=== PATIENT | female | born 1965 | race Caucasian/White ===

== ENCOUNTER 2016-10-25 12:13 | Inpatient (IN) | payer OTHER ==
[~2016-10-25] VITALS: Ht 167.6 cm; Wt 89.9 kg
[~2016-10-25 12:13] MED LIST: CLOP75TA52 PO; METO25TA4 PO
[2016-10-25 12:55] LABS: HEMATOCRIT 45.2 % (34.6-47.8); HEMOGLOBIN 15.1 g/dL (11.7-16.4); WHITE BLOOD COUNT 8.5 x10^3/uL (3.4-10)
[2016-10-25] MEDS ORDERED: ASPIRIN 325 MG TABLET PO ONE (13:36)
[2016-10-25] MEDS ORDERED: ASPIRIN 325 MG TABLET ONE (14:47)
[2016-10-25] MEDS ORDERED: ACETAMINOPHEN 325 MG TABLET PO PRN (15:00)
[2016-10-25] MEDS ORDERED: HYDROcodone/APAP 5/325 TABLET PO PRN (15:00)
[2016-10-25] MEDS ORDERED: morphine SULFATE 10 MG/ML, 1ML IVPush PRN (15:00)
[2016-10-25] MEDS ORDERED: ONDANSETRON 2MG/ML, 2ML IVPush PRN (15:00)
[2016-10-25] MEDS ORDERED: ONDANSETRON ODT 4 MG PO PRN (15:00)
[2016-10-25 15:08] LABS: ASPARTATE AMINO TRANSFERASE 11 U/L (15-37); BLOOD UREA NITROGEN 11 mg/dL (7-18)
[2016-10-25] MEDS ORDERED: GADOBUTROL 10 MMOL/10 ML PFS ONE (15:16)
[2016-10-25] MEDS ORDERED: OMNIPAQUE 350 MG/ML, 100ML BOTTLE ONE (17:23)
[2016-10-25 20:51] VITALS: BP 132/89
[2016-10-25] MEDS: ENOXAPARIN 40 MG/0.4 ML SQ SCH (20:54)
[2016-10-26 03:05] VITALS: BP 109/74
[2016-10-26 04:02] LABS: HEMATOCRIT 42.2 % (34.6-47.8); HEMOGLOBIN 13.9 g/dL (11.7-16.4); WHITE BLOOD COUNT 6.3 x10^3/uL (3.4-10)
[2016-10-26 04:04] LABS: BLOOD UREA NITROGEN 11 mg/dL (7-18)
[2016-10-26 04:08] LABS: ASPARTATE AMINO TRANSFERASE 12 U/L (15-37)
[2016-10-26] MEDS ORDERED: ASPIRIN 81 MG TABLET EC PO SCH (06:00)
[2016-10-26 08:08] VITALS: BP 126/90
[2016-10-26] MEDS ORDERED: POTASSIUM CHLORIDE 20 MEQ TAB.ER.PRT PO ONE (09:30)
[2016-10-26 12:40] VITALS: BP 124/89
[2016-10-26] MEDS ORDERED: ACETAMINOPHEN 325 MG TABLET PO PRN (19:30)
[2016-10-26] MEDS ORDERED: HYDROcodone/APAP 5/325 TABLET PO PRN (19:30)
[2016-10-26] MEDS ORDERED: ONDANSETRON 2MG/ML, 2ML IVPush PRN (19:30)
[2016-10-26] MEDS ORDERED: ONDANSETRON ODT 4 MG PO PRN (19:30)
[2016-10-26] MEDS ORDERED: morphine SULFATE 10 MG/ML, 1ML IVPush PRN (19:30)
[2016-10-26 20:00] VITALS: BP 139/67
[2016-10-26] MEDS: ENOXAPARIN 40 MG/0.4 ML SQ SCH (21:00)
[2016-10-27 02:00] VITALS: BP 123/84
[2016-10-27] MEDS ORDERED: ASPIRIN 81 MG TABLET EC PO SCH (06:00)
[2016-10-27 07:24] VITALS: BP 132/82
[2016-10-27] MEDS ORDERED: ASPI-621 PO (11:07)
[2016-10-27] MEDS ORDERED: ATOR20TA9 PO (11:07)
[2016-10-27 12:52] VITALS: BP 111/77
== END 2016-10-27 13:16 | disposition home or self-care (01) | DRG 69 ==
LOC: ED 13:35 → EDIP 13:36 → ED 13:43 → 4EST 15:31 → DCLOUNGE 10-27 13:00
DX: G45.9 Transient cerebral ischemic attack, unspecified (principal); G40.209 Localization-related (focal) (partial) symptomatic epilepsy and epileptic syndromes with complex partial seizures, not intractable, without status epilepticus; I10 Essential (primary) hypertension; E87.6 Hypokalemia; G46.0 Middle cerebral artery syndrome; M54.2 Cervicalgia; Z79.82 Long term (current) use of aspirin; Z79.899 Other long term (current) drug therapy; Z82.3 Family history of stroke; Z82.49 Family history of ischemic heart disease and other diseases of the circulatory system; Z90.710 Acquired absence of both cervix and uterus; Z90.49 Acquired absence of other specified parts of digestive tract
CPT/HCPCS: 36415; 70450; 70496; 70498; 70553; 80047; 80053; 80061; 84443; 85025; 85610; 85730; 93005; 93306; 95819; A9585; J1650; Q9967